=== PATIENT | male | born 1955 | race Caucasian/White ===

== ENCOUNTER 2024-06-04 12:38 | Emergency (ER) | payer OTHER ==
[~2024-06-04] VITALS: Ht 188 cm; Wt 95.3 kg
[2024-06-04 12:46] VITALS: TEMP 98.1
[2024-06-04 16:00] VITALS: BP 130/75; O2SAT 98
== END 2024-06-04 16:20 | disposition home health service (06) ==
LOC: ER 13:12
DX: S14.109A Unspecified injury at unspecified level of cervical spinal cord, initial encounter (principal); R20.2 Paresthesia of skin; Z98.1 Arthrodesis status; X58.XXXA Exposure to other specified factors, initial encounter; Y93.9 Activity, unspecified; Y92.89 Other specified places as the place of occurrence of the external cause; Y99.8 Other external cause status